=== PATIENT | male | born 1970 | race African-American/Black ===

== ENCOUNTER 2017-02-15 08:38 | Emergency (ER) | payer SELFPAY ==
[~2017-02-15 08:38] MED LIST: NO MEDICATIONS
== END 2017-02-15 08:46 | disposition home or self-care (01) ==
LOC: SED 08:38
DX: S16.1XXA Strain of muscle, fascia and tendon at neck level, initial encounter (principal); X58.XXXA Exposure to other specified factors, initial encounter
CPT/HCPCS: 99283